=== PATIENT | female | born 1995 | race American Indian/Alaskan Native ===

== ENCOUNTER 2022-12-23 15:41 | Emergency (ER) | payer MEDICAID | END 2022-12-23 15:51 | disposition left against medical advice (07) | LOC: JP.ED 15:41 | DX: Z53.21 Procedure and treatment not carried out due to patient leaving prior to being seen by health care provider (principal) ==

== ENCOUNTER 2024-04-26 12:00 | Emergency (ER) | payer MEDICAID ==
[2024-04-26 13:40] LABS: BASOPHILS PERCENT AUTO 0.2 % (0.1-1.3); EOSINOPHILS ABSOLUTE AUTO 0.04 K/uL (0.00-0.40); EOSINOPHILS PERCENT AUTO 0.4 % (0.0-5.4); HEMATOCRIT 37.4 % (34.3-46.0); HEMOGLOBIN 12.4 g/dL (11.2-15.5); IMMATURE GRAN ABSOLUTE AUTO 0.05 K/uL (0.00-0.23); IMMATURE GRAN PERCENT AUTO 0.5 % (0.0-0.7); LYMPHOCYTES ABSOLUTE AUTO 1.59 K/uL (0.8-3.3); MEAN CORPUSCULAR HEMOGLOBIN 25.2 pg (31.6-35.5); MEAN CORPUSCULAR HGB CONC 33.2 g/dL (31.6-35.5); MONOCYTES ABSOLUTE AUTO 0.46 K/uL (0.20-0.90); MONOCYTES PERCENT AUTO 4.6 % (3.3-12.6); NEUTROPHILS ABSOLUTE AUTO 7.75 K/uL (1.0-7.6); NEUTROPHILS PERCENT AUTO 78.3 % (40.0-78.1); PLATELET COUNT,PLT 263 K/uL (130-375); RED BLOOD CELL COUNT 4.92 M/uL (3.77-5.24); WHITE BLOOD CELL COUNT,WBC 9.9 K/uL (3.2-11.0)
[2024-04-26 13:41] LABS: BASOPHILS ABSOLUTE AUTO 0.02 K/uL (0.00-0.10)
[2024-04-26 13:54] LABS: CALCIUM 9.3 mg/dL (8.5-10.1); CREATININE 0.8 mg/dL (0.6-1.0); EST CRCL DRUG DOSING (CG) 73.86 mL/min; POTASSIUM,K 3.5 mmol/L (3.6-5.2)
[2024-04-26] MEDS: Sodium Chloride 0.9% 1,000 ML IV SCH (13:56)
[2024-04-26] MEDS: Metoclopramide 10 MG/2 ML SDV IVPUSH ONE (13:57)
[2024-04-26 14:01] LABS: ANION GAP 13.5 mmol/L (5.0-14.0)
== END 2024-04-26 15:30 | disposition home or self-care (01) ==
LOC: JP.ED 12:00
DX: O21.0 Mild hyperemesis gravidarum (principal); Z3A.08 8 weeks gestation of pregnancy; Z79.899 Other long term (current) drug therapy
CPT/HCPCS: 36415; 80048; 85025; 96361; 96374; 99284; J2765; J7030

== ENCOUNTER 2024-06-09 10:53 | Emergency (ER) | payer MEDICAID ==
[2024-06-09] MEDS: Sodium Chloride 0.9% 10 ML Syringe FLUSH PRN (12:19)
[2024-06-09] MEDS: Sodium Chloride 0.9% 500 ML IV ONE ×2 (12:20→12:59)
[2024-06-09] MEDS: Ondansetron 4 MG/2 ML SDV IVPUSH ONE (12:20)
== END 2024-06-09 14:25 | disposition home or self-care (01) ==
LOC: JP.ED 10:53
DX: O21.0 Mild hyperemesis gravidarum (principal); J45.909 Unspecified asthma, uncomplicated; F17.210 Nicotine dependence, cigarettes, uncomplicated; Z86.16 Personal history of COVID-19; Z79.899 Other long term (current) drug therapy; Z3A.15 15 weeks gestation of pregnancy
CPT/HCPCS: 96361; 96374; 99283; 99283-25; J2405; J3490; J7040

== ENCOUNTER 2024-09-09 14:24 | Emergency (ER) | payer MEDICAID ==
[2024-09-09 14:52] LABS: BASOPHILS ABSOLUTE AUTO 0.03 K/uL (0.00-0.10); BASOPHILS PERCENT AUTO 0.2 % (0.1-1.3); EOSINOPHILS ABSOLUTE AUTO 0.05 K/uL (0.00-0.40); EOSINOPHILS PERCENT AUTO 0.3 % (0.0-5.4); HEMATOCRIT 31.7 % (34.3-46.0); HEMOGLOBIN 10.6 g/dL (11.2-15.5); IMMATURE GRAN ABSOLUTE AUTO 0.07 K/uL (0.00-0.23); IMMATURE GRAN PERCENT AUTO 0.5 % (0.0-0.7); LYMPHOCYTES ABSOLUTE AUTO 1.05 K/uL (0.8-3.3); LYMPHOCYTES PERCENT AUTO 7.2 % (11.4-47.7); MEAN CORPUSCULAR HEMOGLOBIN 26.6 pg (31.6-35.5); MEAN CORPUSCULAR HGB CONC 33.4 g/dL (31.6-35.5); MEAN CORPUSCULAR VOLUME 79.6 fL (81.4-99.0); MONOCYTES ABSOLUTE AUTO 0.42 K/uL (0.20-0.90); MONOCYTES PERCENT AUTO 2.9 % (3.3-12.6); NEUTROPHILS ABSOLUTE AUTO 12.87 K/uL (1.0-7.6); NEUTROPHILS PERCENT AUTO 88.9 % (40.0-78.1); PLATELET COUNT,PLT 207 K/uL (130-375); RED BLOOD CELL COUNT 3.98 M/uL (3.77-5.24); WHITE BLOOD CELL COUNT,WBC 14.5 K/uL (3.2-11.0)
[2024-09-09] MEDS: Sodium Chloride 0.9% 1,000 ML IV ONE (14:53)
[2024-09-09] MEDS: Ondansetron 4 MG/2 ML SDV IVPUSH ONE ×2 (14:53→19:58)
[2024-09-09] MEDS: Acetaminophen 1,000 MG in Premix Bag 1 BAG IV ONE (14:54)
[2024-09-09 15:10] LABS: APPEARANCE,URINE CLEAR (CLEAR); BILIRUBIN,URINE NEGATIVE (NEGATIVE); COLOR,URINE YELLOW (YELLOW); GLUCOSE,URINE NEGATIVE (NEGATIVE); KETONES,URINE 80 mg/dL (NEGATIVE); LEUKOCYTE ESTERASE,URINE NEGATIVE (NEGATIVE); NITRITE,URINE NEGATIVE (NEGATIVE); OCCULT BLOOD,URINE MODERATE (NEGATIVE); PH,URINE 6.5 (5.0-8.0); PROTEIN,URINE 30 mg/dL (NEGATIVE); UROBILINOGEN,URINE 0.2 EU/dL (0.2-1.0)
[2024-09-09 15:12] LABS: A/G RATIO 0.8 (1.2-2.2); ALANINE AMINOTRANSFERASE,ALT 12 U/L (12-78); ALKALINE PHOSPHATASE 86 U/L (46-116); ASPARTATE AMNIOTRANSFERASE,AST 12 U/L (15-37); BILIRUBIN TOTAL 0.3 mg/dL (0.2-1.0); BLOOD UREA NITROGEN,BUN 7 mg/dL (7-18); CALCIUM 7.7 mg/dL (8.5-10.1); CARBON DIOXIDE,CO2 23 mmol/L (21-32); CHLORIDE,CL 106 mmol/L (100-108); CREATININE 0.8 mg/dL (0.6-1.0); EST CRCL DRUG DOSING (CG) 73.86 mL/min; ESTIMATED GFR 102 mL/min (>60); GLUCOSE RANDOM 93 mg/dL (74-106); PROTEIN TOTAL,TP 6.7 g/dL (6.4-8.2); SODIUM,NA 140 mmol/L (140-148)
[2024-09-09 15:16] LABS: AMPHETAMINES SCREEN, URINE NEGATIVE (NEGATIVE); BARBITURATE SCREEN,URINE NEGATIVE (NEGATIVE); BENZODIAZEPINES SCREEN,URINE NEGATIVE (NEGATIVE); METHADONE SCREEN, URINE NEGATIVE (NEGATIVE); METHAMPHETAMINES SCREEN, URINE NEGATIVE (NEGATIVE); OXYCODONE SCREEN,URINE NEGATIVE (NEGATIVE); PROPOXYPHENE SCREEN,URINE NEGATIVE (NEGATIVE); THC SCREEN,URINE 50 NG/ML PRESUMPTIVE POSITIVE (NEGATIVE)
[2024-09-09 15:26] LABS: AMORPHOUS SEDIMENT,URINE OCCASIONAL; BACTERIA,URINE RARE; EPITHELIAL CELLS,URINE OCCASIONAL; MUCUS,URINE OCCASIONAL; WBC,URINE 0-5 (0-5)
[2024-09-09] MEDS: NS + KCl 20mEq/L 1,000 ML IV SCH (15:32)
[2024-09-09] MEDS ORDERED: Naloxone 0.4 MG/ML SDV IVPUSH PRN ×2 (16:51→17:06)
[2024-09-09] MEDS: HYDROmorphone 1 MG/ML Syringe IM ONE (17:08)
[2024-09-09] MEDS: HYDROmorphone 1 MG/ML Syringe IVPUSH ONE ×2 (17:10→19:39)
== END 2024-09-09 21:34 ==
LOC: JP.ED 14:24
DX: O21.9 Vomiting of pregnancy, unspecified (principal); O99.283 Endocrine, nutritional and metabolic diseases complicating pregnancy, third trimester; O99.891 Other specified diseases and conditions complicating pregnancy; E87.6 Hypokalemia; R10.31 Right lower quadrant pain; Z3A.28 28 weeks gestation of pregnancy; Z86.16 Personal history of COVID-19
CPT/HCPCS: 36415; 76705; 80053; 80305; 81001; 85025; 86140; 96365; 96366; 96375; 96376; 99285; J0131; J1171; J2405; J3480; J7030

== ENCOUNTER 2024-11-28 04:10 | Emergency (ER) | payer MEDICAID | END 2024-11-28 07:20 | LOC: JP.ED 04:10 | DX: O62.3 Precipitate labor (principal); Z3A.39 39 weeks gestation of pregnancy; Z79.899 Other long term (current) drug therapy; Z86.16 Personal history of COVID-19; Z37.0 Single live birth | CPT/HCPCS: 99285 ==